=== PATIENT | female | born 1960 | race Caucasian/White ===

== ENCOUNTER → 2023-10-21 14:38 | Outpatient (REF) | payer MEDICARE, SELFPAY | LOC: WDC 14:38 | PROVIDERS: ATTENDING PHYSICIAN Family Medicine | DX: Z12.31 Encounter for screening mammogram for malignant neoplasm of breast (principal) | CPT/HCPCS: 77063; 77067 ==

== ENCOUNTER 2023-11-16 15:41 | Emergency (ER) | payer MEDICARE, SELFPAY ==
[2023-11-16 15:46] VITALS: BP 167/86
[2023-11-16 16:11] LABS: % Basophils 0.3 % (0-2); % Immature Granulocytes 0.4 % (0-0.5); % Lymphocytes 8.3 % (20.5-51.1); % Monocytes 5.3 % (1.7-9.3); % Neutrophils 85.7 % (42.2-75.2); Absolute Immature Granulocytes 0.1 10^3/uL (0-0.05); Absolute Lymphocytes 1.2 10^3/uL (1.2-3.4); Absolute Monocytes 0.8 10^3/uL (0.1-0.6); Hemoglobin 13.1 g/dL (12.0-16.0); Mean Corp Hgb Conc. 34.5 g/dL (33.0-37.0); Mean Corpuscular Hgb 32.3 pg (27.0-31.0); Mean Corpuscular Volume 93.8 fL (81.0-99.0); Mean Platelet Volume 9.3 fL (7.4-10.4); Nucleated Red Blood Cells % 0 %; Platelet Count 240 10^3/uL (130-400); Red Blood Cell Count 4.05 10^6/uL (4.20-5.40); Red Cell Dist. Width 12.6 % (11.5-14.5)
[2023-11-16 16:22] LABS: ALT (SGPT) 129 U/L (0-35); AST (SGOT) 176 U/L (14-36); Alkaline Phosphatase 145 U/L (38-126); Blood Urea Nitrogen 11 mg/dl (7-17); Calcium 9.2 mg/dl (8.4-10.2); Carbon Dioxide 20 mmol/L (22-30); Chloride 97 mmol/L (98-107); Glucose 131 mg/dl (70-99); Potassium 3.9 mmol/L (3.5-5.1); Sodium 128 mmol/L (135-145); Total Bilirubin 0.6 mg/dl (0.2-1.3); Total Protein 7.4 g/dl (6.3-8.2); eGFR > 60.00
[2023-11-16 16:30] LABS: COVID-19 Antigen Negative (Negative)
[2023-11-16] MEDS: ZOFRAN 4 MG IV (18:39)
[2023-11-16] MEDS: NSS 1000 IV ×2 (18:41→21:15)
[2023-11-16 18:47] VITALS: BP 108/65
[2023-11-16 19:00] VITALS: BP 148/75
[2023-11-16 19:21] LABS: Lipase 70 U/L (23-300)
[2023-11-16 21:12] LABS: Acetaminophen < 10 ug/ml (10-30)
[2023-11-16] MEDS: TORADOL 15 MG IV (21:14)
[2023-11-16 21:21] VITALS: BP 139/74
[2023-11-16 22:00] VITALS: BP 124/60
--- NOTE | 2023-11-16 23:14 | ED.GENMED ---
History of Present Illness
General
Chief Complaint: Fever
Source: patient and spouse
Exam Limitations: none
Time Seen by Provider: 11/16/23 18:00
Nursing documentation reviewed up to this point in time: agreed with
Travel History
Have you had any contact with someone who has COVID-19?: No
Do you have any symptoms of coronavirus? Fever > 100 degrees, chills, cough, shortness of breath, sore throat, loss of taste or smell, muscle aches, or headache?: No
History of Present Illness
History of Present Illness:
Patient to ED with complaint of fever, headahce, bodyaches, weakness x 4 days. History of migraine headaches and reports typically having headaches 4x/week. This headache feels different to her Not responding to her typcial miigraine medications.
Brought to ED by spouse for eval.
Past History
Past History
ED Past Medical History: HTN, Hypercholesterolemia and Other (Migraine headaches.)
ED Past Surgical History: Other (Noncontributory)
Social History
Alcohol: Occasional
Drug: None
Personal:
Living: with family
Employment: Employed
Family History
Family History: Other (Noncontributory)
Review of Systems
Review of Systems
Allergies reviewed?: Yes
All Other Systems: ROS reviewed and negative except as documented in HPI and ROS
Constitutional: Reports no symptoms
EENT: Reports no symptoms
Respiratory: Reports no symptoms
Cardiac: Reports no symptoms
ABD/GI: Reports no symptoms
: Reports no symptoms
Musculoskeletal: Reports no symptoms
Skin: Reports no symptoms
Neurological: Reports headache
Psychiatric: Reports no symptoms
Phy Exam
General Physical Exam
General Presentation: well appearing and mild distress
General age: appears stated age
General Skin: warm and dry
General Habitus: normal
ENT Exam
ENT Exam: EOMI, TM's normal, neck supple and swallowing well
Eye Exam
Eye Exam: PERRL, EOMI, conjunctiva normal and globe normal
Cardiovascular Exam
Cardiovascular Exam: regular rate/rhythm and no edema
Pulmonary Exam
Pulmonary Exam: lungs clear and no respiratory distress
Gastrointestinal Exam
Gastrointestinal Exam: non tender, soft and no organomegaly
Neurological Exam
Neurological Exam: alert, oriented x3, CN II-XII intact, no motor deficits, no sensory deficits, speech normal and normal gait
Musculoskeletal Exam
Musculoskeletal Exam: full ROM and neuro vasc intact
Skin Exam
Skin Exam: normal color, warm/dry and no rash
Psychiatric Exam
Psychiatric Exam: normal mood/affect
Course
Orders/Labs/Results
Orders:
Orders
11/16/23 15:58
Acetaminophen Urgent
Comment: ADD ON
COVID-19 Antigen Urgent
Source: Nasal Swab
Complete Blood Count/With Diff Urgent
Comprehensive Metabolic Panel Urgent
Lipase Urgent
Comment: ADD ON
Influenza A+B Rapid Molecular Urgent
LEA Source: Nasal Swab
Specimen Description:
11/16/23 18:32
0.9% Sodium Chloride 1000 ml [Nss] 1,000 ml IV BOLUS
11/16/23 18:33
CT Head W/o Iv Contrast Urgent
Comment:
Reason For Exam: atypical migraine
11/16/23 18:34
Add On- LAB Urgent
Tests Added?: lipase
Ondansetron Injectable [Zofran] 4 mg IV NOW STA
US Abdomen Complete/Upper Urgent
Comment:
Reason For Exam: elevated LFT's
11/16/23 20:31
Add On- LAB Urgent
Tests Added?: acetaminophen
11/16/23 21:03
Ketorolac [Toradol] 15 mg IV NOW STA
11/16/23 21:04
0.9% Sodium Chloride 1000 ml [Nss] 1,000 ml IV BOLUS
11/16/23 21:13
Hepatitis A IgM Antibody Urgent
Hepatitis B Core Ab, IgM Urgent
Hepatitis B Surface Antibody Urgent
Hepatitis B Surface Antigen Urgent
Hepatitis C Antibody Urgent
11/16/23 21:23
Blood Culture Q30M
LEA Source: Blood/Venous
Specimen Description:
Blood Culture Q30M
LEA Source: Blood/Venous
Specimen Description:
Abnormal Lab Results
11/16/23
15:58
WBC 14.0 H 10^3/uL
(4.8-10.8)
RBC 4.05 L 10^6/uL
(4.20-5.40)
MCH 32.3 H pg
(27.0-31.0)
Abs Immat Gran (auto) 0.1 H 10^3/uL
(0-0.05)
Absolute Neuts (auto) 12.0 H 10^3/uL
(1.4-6.5)
Absolute Monos (auto) 0.8 H 10^3/uL
(0.1-0.6)
Neutrophils % 85.7 H %
(42.2-75.2)
Lymphocytes % 8.3 L %
(20.5-51.1)
Sodium 128 L mmol/L
(135-145)
Chloride 97 L mmol/L
(98-107)
Carbon Dioxide 20 L mmol/L
(22-30)
Glucose 131 H mg/dl
(70-99)
AST 176 H U/L
(14-36)
ALT 129 H U/L
(0-35)
Alkaline Phosphatase 145 H U/L
(38-126)
Acetaminophen < 10 L ug/ml
(10-30)
11/16/23 15:58
11/16/23 15:58
Vital Signs
Initial and Last Documented VS:
Initial Vital Signs
Temp Pulse Resp BP Pulse Ox
99.6 F 90 18 167/86 95
11/16/23 15:46 11/16/23 15:46 11/16/23 15:46 11/16/23 15:46 11/16/23 15:46
Last Documented Vital Signs
Temp Pulse Resp BP Pulse Ox
99.6 F 93 18 124/60 96
11/16/23 15:46 11/16/23 22:15 11/16/23 15:46 11/16/23 22:00 11/16/23 22:15
*Radiology
Radiology exam reviewed: radiology read reviewed
*Pulse Oximetry
Patient hypoxic: no
*Critical Care Note
Total Time (30-74mins, 75-104mins- exclusive of procedures): Not Applicable
Update Note
Update Note:
Improved with IVF, toradol. Labs reviewed with her. Mild LFT elevation noted. Recommend repeating in 1 week. Hep panel pending. SHe was given instructions on s/s to return to ED and she isagreeable to plan.
ED Attending Note
-
Portions of this chart may have been created with voice recognition software.� Occasional wrong word or��sound alike� substitutions may have occurred due to the inherent limitations of voice recognition software.
Discharge Plan
Departure
Patient Disposition: Home (Routine Discharge)
Date of Disposition: 11/16/23
Time of Disposition: 22:37
Patient with high blood pressure during this ER visit?: No
Condition: Good
Covid-19: Not Applicable
Discharge Problem:
Fever in adult
Instructions: Fever, Adult (DC), Viral Syndrome (DC)
Prescriptions:
No Action
cyclobenzaprine 10 MG tablet
20 mg PO HS
simvastatin 20 MG tablet
20 mg PO HS
topiramate 100 MG tablet
150 mg PO DAILY
fluoxetine 20 MG capsule
20 mg PO DAILY
eszopiclone [Lunesta] 3 MG tablet
3 mg PO HS
doxepin 25 MG capsule
25 mg PO HS
oxycodone-acetaminophen 5 MG/325 MG tablet
1 tab PO Q4HPRN PRN (Reason: pain) Qty: 20 0RF
prednisone 50 MG tablet
50 mg PO DAILY Qty: 3 0RF
Referrals:
Nir Morgan MD [Family Provider] - Follow up in 2-3 days (Please have your liver function labs rechecked in 1 week.)
Activity Restrictions/Additional Instructions:
Return to the emergency department immediately for any changes in/worsening of your symptoms
Interventions
Interventions:
*Nursing Disposition Last Done: 11/16/23 22:48
ED- Neurological Assessment Last Done: 11/16/23 18:49
ED-Skin Assessment Last Done: 11/16/23 18:49
Discharge Date and Time
Discharge Date/Time: 11/16/23 22:52
Print Language: HAITIAN
[2023-11-17 19:17] LABS: Hepatitis B Surface Antigen Negative (Negative)
[2023-11-17 19:22] LABS: Hepatitis A IgM Antibody Negative (Negative); Hepatitis B Core Ab, IgM Negative (Negative)
[2023-11-17 19:34] LABS: Hepatitis B Surface Antibody Negative; Hepatitis C Antibody Negative (Negative)
== END 2023-11-16 22:52 | disposition home or self-care (01) ==
LOC: EMR 15:41
PROVIDERS: Nurse Practitioner; EMERGENCY PHYSICIAN Emergency Medicine; FAMILY PHYSICIAN Family Medicine
DX: R50.9 Fever, unspecified (principal); R51.9 Headache, unspecified; R53.1 Weakness; M79.10 Myalgia, unspecified site; Z11.52 Encounter for screening for COVID-19; R94.5 Abnormal results of liver function studies; I10 Essential (primary) hypertension; E78.00 Pure hypercholesterolemia, unspecified; K52.9 Noninfective gastroenteritis and colitis, unspecified; K21.9 Gastro-esophageal reflux disease without esophagitis; F17.200 Nicotine dependence, unspecified, uncomplicated; Z96.642 Presence of left artificial hip joint; Z91.048 Other nonmedicinal substance allergy status; Z98.0 Intestinal bypass and anastomosis status
CPT/HCPCS: 99284; 96374; 96375; 96361 ×2; 70450; 76700; 80053; 80143; 83690; 85025; 86705; 86706; 86709; 86803; 87040; 87340; 87502; 87811

== ENCOUNTER → 2023-12-30 14:36 | Outpatient (REF) | payer MEDICARE, SELFPAY | LOC: HWRAD 14:36 | PROVIDERS: ATTENDING PHYSICIAN Internal Medicine; FAMILY PHYSICIAN Family Medicine | DX: L40.59 Other psoriatic arthropathy (principal) | CPT/HCPCS: 72110; 72202; 73130; 73560; 73565 ==

== ENCOUNTER → 2024-03-10 13:21 | Outpatient (REF) | payer MEDICARE, SELFPAY | LOC: HWRAD 13:21 | PROVIDERS: ATTENDING PHYSICIAN Internal Medicine; FAMILY PHYSICIAN Family Medicine | DX: M81.0 Age-related osteoporosis without current pathological fracture (principal) | CPT/HCPCS: 77080 ==

== ENCOUNTER → 2024-03-24 11:15 | Outpatient (REF) | payer MEDICARE, SELFPAY | LOC: RAD 11:15 | PROVIDERS: ATTENDING PHYSICIAN Internal Medicine; FAMILY PHYSICIAN Family Medicine | DX: M79.641 Pain in right hand (principal); M79.642 Pain in left hand | CPT/HCPCS: 76882 ==